=== PATIENT | female | born 1955 | race Caucasian/White ===

== ENCOUNTER → 2017-10-17 | Outpatient (REF) | payer OTHER ==
[~2017-10-17] MED LIST: AUG500 PO; CYCL10TA29 PO; HYDR-385 PO; PRE20 PO
== END ==
LOC: ZZSENDIN 17:20
PROVIDERS: ATTEND Family Medicine
DX: R35.8 Other polyuria (principal); B96.20 Unspecified Escherichia coli [E. coli] as the cause of diseases classified elsewhere
CPT/HCPCS: 81001; 87077; 87088; 87186

== ENCOUNTER 2018-05-29 00:22 | Observation (INO) | payer MEDICARE, OTHER ==
[~2018-05-29] VITALS: Ht 170.2 cm; Wt 65.8 kg
[2018-05-29] VITALS (10 sets, daily range): BP systolic 95–125; BP diastolic 56–85
[~2018-05-29 00:22] MED LIST changes: +SCOP1PAT16 TD
[2018-05-29] MEDS ORDERED: ROPIVACAINE 0.2% 20 ML VIAL ONE ×2 (09:48→11:20)
[2018-05-29] MEDS ORDERED: NS(*) 0.9% 100 ML BAG 0 ML ONE (09:48)
[2018-05-29] MEDS ORDERED: MANNITOL* (20%)100 GM/500ML BG 500 ML IVPB ONE (09:48)
[2018-05-29] MEDS ORDERED: ESTROGENS CONJ VAG CREAM 30 GM TUBE PV ONE (09:49)
[2018-05-29] MEDS ORDERED: VASOPRESSIN 20 UNIT/ML VIAL ONE (09:49)
[2018-05-29] MEDS ORDERED: SCOPOLAMINE 1.5 MG PATCH TD ONE (10:00)
[2018-05-29] MEDS ORDERED: APREPITANT 40 MG CAP PO ONE (10:00)
[2018-05-29] MEDS ORDERED: MIDAZOLAM 2 MG/2 ML VIAL IVP PRN (10:30)
[2018-05-29] MEDS ORDERED: LIDOCAINE/SOD BICARB 8.4% SYR ID ONE (10:30)
[2018-05-29] MEDS ORDERED: FAMOTIDINE 20 MG TAB PO ONE (10:30)
[2018-05-29] MEDS ORDERED: cefOXitin/DEX(*) 2GM/50ML PREM 50 ML IVPB ONE (10:30)
[2018-05-29] MEDS ORDERED: NORMOSOL R SOLN(*) 1000 ML BAG 1,000 ML IV PRN (10:30)
[2018-05-29 10:42] LABS: PLATELET COUNT, AUTOMATED 179 K/uL (150-450)
[2018-05-29] MEDS ORDERED: NS(*) 0.9% 10 ML VIAL 50 ML ONE (11:22)
[2018-05-29] MEDS ORDERED: fentaNYL CITR 250 MCG/5 ML AMP ONE (11:26)
[2018-05-29] MEDS ORDERED: ONDANSETRON 4 MG/2 ML VIAL ONE (11:27)
[2018-05-29] MEDS ORDERED: DEXAMETHASONE SOD PHOS 10MG/ML ONE (11:27)
[2018-05-29] MEDS ORDERED: PROPOFOL EMUL(*) 10MG/ML 20 ML 20 ML ONE (11:27)
[2018-05-29] MEDS ORDERED: LIDOCAINE MPF 1% 5 ML VIAL ONE (11:27)
[2018-05-29] MEDS ORDERED: KETAMINE HCL 200 MG/20 ML MDV ONE (11:29)
[2018-05-29] MEDS ORDERED: NS 0.9% 20 ML SDV 20 ML ONE (11:32)
[2018-05-29] MEDS ORDERED: ACETAMINOPHEN(*)1000 MG/100 ML 100 ML IVPB ONE (12:00)
[2018-05-29] MEDS ORDERED: SUGAMMADEX SOD 200 MG/2 ML SDV ONE (12:47)
[2018-05-29] MEDS ORDERED: INDIGOTINDISULF SOD 40 MG/5 ML ONE (14:34)
[2018-05-29] MEDS ORDERED: KETOROLAC 30 MG/ML VIAL ONE (14:39)
[2018-05-29] MEDS ORDERED: OXYC-865 PO (14:47)
[2018-05-29] MEDS ORDERED: DOCU-416 PO (14:47)
[2018-05-29] MEDS ORDERED: IBUP800T37 PO (14:47)
[2018-05-29] MEDS ORDERED: ACETAMINOPHEN 325 MG TAB PO PRN (14:55)
[2018-05-29] MEDS ORDERED: HYDROmorphone HCL 2 MG TAB PO PRN (14:55)
[2018-05-29] MEDS ORDERED: ZOLPIDEM TARTRATE 10 MG TAB PO PRN (14:55)
[2018-05-29] MEDS ORDERED: ONDANSETRON 4 MG/2 ML VIAL IV PRN (14:55)
[2018-05-29] MEDS ORDERED: PROMETHAZINE 25 MG/ML 1 ML AMP IVP PRN (14:55)
[2018-05-29] MEDS ORDERED: SIMETHICONE 80 MG CHEW CHEW PRN (14:55)
--- NOTE | 2018-05-29 15:05 | Post Operative Note ---
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
[2018-05-29] MEDS ORDERED: fentaNYL CITR 100 MCG/2 ML AMP ONE (16:22)
[2018-05-29] MEDS: DLR(*) 1000 ML BAG 1,000 ML IV PRN (17:31)
--- NOTE | 2018-05-29 17:37 | OPERATIVE REPORT 1 ---
EVENT DATE: May 29, 2018 SURGEON: Rodrick Lewis MD ANESTHESIOLOGIST: Stiven Crockett MD ANESTHESIA: General endotracheal anesthesia. EMPLOYMENT OFFICER: Afia Ervin PA-C PREOPERATIVE DIAGNOSES 1. Uterovaginal prolapse. 2. Midline cystocele. POSTOPERATIVE DIAGNOSES 1. Uterovaginal prolapse. 2. Midline cystocele. PROCEDURES PERFORMED 1. Robotic-assisted total laparoscopic hysterectomy. 2. Bilateral salpingo-oophorectomy. 3. Modified Espinal culdoplasty. 4. Diagnostic cystoscopy. 5. Anterior colporrhaphy. FLUIDS Crystalloid 2000 mL IV. PROCEDURE IN DETAIL The patient was brought to the operating room with a working IV, placed in the dorsal supine position. She was placed under general endotracheal anesthesia. She was then prepped and draped in the usual sterile fashion. A weighted speculum was placed in the vagina. The cervix was grasped with a single-toothed tenaculum. It was sounded retroverted to a depth of 8 cm. A medium size VCare uterine manipulator was selected, assembled, passed through the cervix into the uterus, bulb inflated and secured, and the VCare cup was sutured against the cervix. The pneumo cup was approximated against this one and secured in place. A Martinez catheter was placed to dependent drainage. Legs were brought back to the supine position, and gloves were changed. 12 cm were measured above the target anatomy, which ended up being 2 cm above the umbilicus. An 8 mm stab incision was made. The anterior abdominal wall was elevated while a Veress needle was passed through this incision into the abdomen. We confirmed intra- abdominal presence by elevating the anterior abdominal wall and observing a negative pressure. Pneumoperitoneum was created to an intra-abdominal pressure of 20 mmHg. The Veress needle was removed, and an 8 mm bladeless robotic trocar was passed through this incision into the abdomen. This was performed via direct visualization through the scope. Two additional 8 mm ports were placed in line left lateral to this incision under a similar technique, as well as two additional robotic ports right lateral to this umbilical port. A scope was then inserted. The scope was then used to inspect the pelvis while the patient was moved into the Trendelenburg position. The uterus was freely visible as well as both ovaries, appearing menopausal. The robot was then brought overlying the patient and was docked to the patient, targeted, and passed. All additional arms were docked and spaced. Instruments were placed and directed following those into the abdomen without complication. I then scrubbed out and presented to the console, and the hysterectomy proceeded as follows: The right tube and ovary were grasped with the grasped and put on medial stretch, exposing the IP ligament. The ureter was observed peristalsing well below this area. The tube and ovary were dissected away from their pelvic connection using the vessel sealer down to the round ligament, which was cauterized and transected with the vessel sealer. The broad ligament was into anterior and posterior leaflets, and the anterior dissection was performed, dissecting the bladder away from the underlying VCare cup, indenting up into the vaginal mucosa. A colpotomy incision was made at this point to confirm location of the VCare cup, followed by further skeletonization posteriorly of the uterine vessels. The uterine vessels were then taken out with perpendicular bite with the vessel sealer and transected, followed by parallel bites along the lateral uterus down to and overlying the VCare cup. The same procedure was followed on the contralateral side in a likewise fashion, identifying the ureter well below the operative field and dissecting and excising the tube and ovary away from their pelvic connection down to the utero-ovarian ligament. The round ligament was then cauterized and transected. Broad ligament was into anterior and posterior leaflets. The anterior dissection was completed, followed by skeletonization of these vessels. The uterine vessels on this side were taken out with perpendicular bite and transected, followed by parallel bites along the lateral uterus down to and overlying the VCare cup. The colpotomy incision was then further extended circumferentially through the uterosacral ligaments posteriorly and around to the contralateral side, excising the uterus and cervix from its vaginal connection. It was taken out through the vagina. There were no visible bleeders at this point. Therefore, instruments were changed. An 0 Vicryl was then used to suture ligate the angles of the vaginal mucosa to the ipsilateral uterosacral ligament. This was performed bilaterally, followed by 2-0 V-Loc suture in a running nonlocking fashion along the length of the vaginal closure. Upon completion, this was hemostatic with no visible complications. Therefore, the robotic procedure was terminated, and all instruments were removed. The robot was then docked and taken away. The trocars were removed. Skin incisions were repaired with 4-0 Monocryl simple subdermal and covered with Dermabond skin adhesive. I scrubbed back into the procedure. The legs were brought back to the supine position, and the remaining midline cystocele was inspected. There appeared to be a proximal cystocele. Therefore, the area just before the vaginal cuff closure was grasped with Allis clamps. The area was demarcated, and a linear incision was made along the length of medial defect, followed by a transverse incision extending to both Allis clamps. The vaginal mucosa was dissected away using sharp dissection from the underlying endopelvic fascia. Once this had been adequately dissected away with the assistance of Allis clamps, a running pursestring stitch was placed with 2-0 Vicryl to close the size of the defect, followed by Kortney plication stitches along the length of its entirety to completely reduce this defect. Excess vaginal mucosa was then trimmed away, and the vaginal repair was performed with a 2-0 Vicryl in a running nonlocking stitch. Upon completion, this was hemostatic. The Martinez catheter was then removed, and diagnostic cystoscopy was performed using 20% mannitol infusion through the cystoscope. Both ureters were clearly visible, as well as the entire bladder was inspected and found to be without injury. Both ureteral orifices were visible, as well as the entire bladder was inspected, and found to be without injury. There were slow urine jets, but excellent urine jets from both ureteral orifices after observing for a period of time, and also with the assistance of indigo carmine infused IV, we did confirm ureteral patency with strong urine jets and no concern for ureteral blockage. Therefore, the bladder was drained. Martinez catheter was replaced to dependent drainage. The vagina was packed with a Kerlix moistened with Premarin cream. Patient was returned to the dorsal supine position, awakened from general anesthesia in stable condition, and taken to Recovery. Sponge, lap, needle, and instrument counts were all correct times three. SHAMAR
[2018-05-29] MEDS: FAMOTIDINE 20 MG TAB PO SCH (21:27)
[2018-05-29] MEDS: DOCUSATE CALCIUM 240 MG CAP PO SCH (21:27)
[2018-05-29] MEDS: KETOROLAC 30 MG/ML VIAL IVP SCH (21:27)
[2018-05-30] MEDS: DLR(*) 1000 ML BAG 1,000 ML IV PRN ×2 (00:33→07:05)
[2018-05-30] MEDS: KETOROLAC 30 MG/ML VIAL IVP SCH (03:30)
[2018-05-30 03:40] VITALS: BP 94/55
[2018-05-30 06:42] LABS: PLATELET COUNT, AUTOMATED 157 K/uL (150-450)
[2018-05-30 07:50] VITALS: BP 94/55
[2018-05-30 08:00] VITALS: Ht 170.2 cm; Wt 65.8 kg
[2018-05-30] MEDS ORDERED: LR IV ONE (08:35)
[2018-05-30] MEDS: FAMOTIDINE 20 MG TAB PO SCH (08:54)
[2018-05-30] MEDS: DOCUSATE CALCIUM 240 MG CAP PO SCH (08:55)
[2018-05-30 10:00] VITALS: BP 102/62
[2018-05-30] MEDS ORDERED: FUROSEMIDE 20 MG/2 ML VIAL IVP ONE (10:10)
[2018-05-30 11:03] VITALS: BP 99/56
--- NOTE | 2018-05-30 11:55 | OB/GYN Progress Note ---
OB Subjective Progress Notes Subjective Feeling well with little pain. Ambulating well and no nausea. Marginal urine output last night but resolved with fluid bolus and now with lasix, UO is high and clear. Wants to go home. GI: NEG Nausea : Voiding Well Pain: Mild OB Objective Physical Exam Vital Signs Date Time Temp Pulse Resp B/P (MAP) Pulse Ox O2 Delivery O2 Flow Rate FiO2 05/30/18 11:07 94 05/30/18 11:03 97.8 62 16 99/56 (70) Room Air Intake and Output 05/30/18 07:00 Intake Total 4120 ml Output Total 775 ml Balance 3345 ml Intake Oral 120 ml IV Total 4000 ml Output Urine Total 775 ml General Appearance: Alert/Awake/No Acute Distress Neurological: No Gross deficits Eyes: Normal Extraocular Movement & Vison Cardiovascular: Normal Rhythm & Peripheral Pulses, Regular Rate and Rhythm Respiratory: No Respiratory Distress, Clear to Auscultation Abdomen: Soft, Non-Tender, Non-Distended Integumentary: Skin Intact without Lesions or Rash Psychological: Alert & Oriented X3, Appropriate Mood & Affect Result Diagram: 05/30/18 0633 05/30/18 0847 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 When able to void well, ok to go home. F/U in 2 weeks. Reviewed discharge instructions and precautions. (2) History of robot-assisted laparoscopic hysterectomy PAUL FLORES MD May 30, 2018 11:55
--- NOTE | 2018-05-30 11:56 | Short(Outpt) Discharge Summary ---
Discharge Summary Reason for Hosp/Final Diag: (1) Other specified aftercare following surgery Hospital Course & Plan: Remove easton and packing and continue to ambulate. When able to void well, ok to go home. F/U in 2 weeks. Reviewed discharge instructions and precautions. (2) History of robot-assisted laparoscopic hysterectomy Departure Discharge to: Home, Self Care Discharge Instructions Home Meds Active Scripts Oxycodone Hcl/Acetaminophen (PERCOCET 5-325 MG TABLET) 1 Each Tablet, 1 EACH PO Q4-6H PRN for PAIN, #20 TAB 0 Refills TAKE 1 TABLET NEEDED FOR PAIN - NO CLOSER THAN EVERY 4-6 HOURS. 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
[2018-05-30] MEDS ORDERED: IBUPROFEN 800 MG TAB PO PRN (15:00)
[2018-05-31] MEDS ORDERED: INFLUENZA VIRUS VAC 0.5ML SYR IM ONLY ONE (09:00)
== END 2018-05-30 11:56 | disposition home or self-care (01) ==
LOC: OR 00:22 → PED 15:20
PROVIDERS: ADMIT Obstetrics & Gynecology; ATTEND Obstetrics & Gynecology
DX: N81.11 Cystocele, midline (principal); N81.4 Uterovaginal prolapse, unspecified; D26.0 Other benign neoplasm of cervix uteri
CPT/HCPCS: 36415; 58571; 85025; 88307; 96372; A9270; G0378; J0131; J0694; J1100; J1885; J1940; J2001; J2250; J2405; J2704; J2795; J3010; J3490; J7050; J7120; J8501; S2900; 82310; 82374; 82435; 82565; 82947; 84132; 84295; 84520